=== PATIENT | female | born 1950 | race Caucasian/White ===

== ENCOUNTER 2024-10-25 20:53 | Observation (INO) | payer MEDICARE, OTHER, SELFPAY ==
[2024-10-25 16:40] VITALS: BP 151/88
[2024-10-25 17:00] VITALS: BP 119/68
[2024-10-25 17:04] VITALS: BP 119/68
[2024-10-25 17:10] VITALS: BMI 34.3
[2024-10-25] MEDS: TYLENOL 650 MG PO (17:10)
--- NOTE | 2024-10-25 17:15 | ED.GENMED ---
History of Present Illness
<Kanika Gilliland PA-C - Last Filed: 10/26/24 00:30>
General
Chief Complaint: Fall
Source: patient
Exam Limitations: none
Time Seen by Provider: 10/25/24 16:53
Nursing documentation reviewed up to this point in time: agreed with
History of Present Illness
History of Present Illness:
Patient is a 74-year-old female with history of hypertension presenting to the emergency department with left leg injury. Patient states she was walking across the pool deck earlier when she stepped into a the filter hole that was uncovered at the
time. She states that her left leg became stuck in the filter hole as the rest of her fell forward. She did not hit her head or lose consciousness. Patient states she initially was able to stumble over the bench where she sat until her daughter
came home and helped her come to the ER. Patient is unable to bear any weight now on her left leg.
She reports pain through her left camejo. No pain in her left ankle, left knee, or left hip. No numbness/tingling in left lower extremity.
She denies any pain in upper extremities, back pain, neck pain, or headache.
Patient is not on any blood thinners.
Review of Systems
<Kanika Gilliland PA-C - Last Filed: 10/26/24 00:30>
Review of Systems
Allergies reviewed?: Yes
All Other Systems: ROS reviewed and negative except as documented in HPI and ROS
Phy Exam
<Kanika Gilliland PA-C - Last Filed: 10/26/24 00:30>
Physical Exam
Physical Exam:
GENERAL: No acute distress
HEENT: atraumatic, extraocular muscles intact, no signs of entrapment, dentition intact, no other obvious trauma
NECK: no midline tenderness, normal range of motion, no other obvious trauma
BACK: no midline tenderness, no other obvious trauma
CHEST: no tenderness, no flail segment, no subcutaneous emphysema, no other obvious trauma
LUNGS: clear to auscultation bilaterally
CARDIOVASCULAR: regular rate and rhythm
ABDOMEN: soft, non-tender, no masses, no other obvious trauma
PELVIS: stable, no obvious injury
EXTREMITIES: Swelling, ecchymosis, and tenderness to left camejo. No bony tenderness to left knee, left hip, or left ankle. Very limited range of motion in left lower extremity due to pain. Sensation intact in LLE. Palpable left DP and PT pulse.
Cap refill within normal limits. Compartments soft. RLE, and bilateral upper extremities atraumatic and nontender with full range of motion
NEUROLOGIC: awake, alert x 3, no focal deficits
Course
<Kanika Gilliland PA-C - Last Filed: 10/26/24 00:30>
Orders/Labs/Results
Orders:
Orders
10/25/24 Dinner
Cholesterol Lowering
At Your Request: Full Participation
Cholesterol Lowering: Sodium, 2 Gram
10/25/24 17:05
Acetaminophen [Tylenol] 650 mg PO NOW STA
Leg Tibia/Fibula, Left 2 View [CR Leg Tibia/fibula Left 2 Vw] Urgent
Comment:
Reason For Exam: fall
10/25/24 19:48
Basic Metabolic Panel Urgent
Complete Blood Count/With Diff Urgent
10/25/24 20:16
Oxycodone [Roxicodone] 5 mg PO NOW STA
Oxycodone [Roxicodone] 5 mg PO Q4HPRN PRN
10/25/24 20:21
Splint [Braces/Immobilizers] As Directed
Type of Brace/Immobilizer: Knee immobilizer
Location for Brace/Immobilizer: left
10/25/24 20:29
Admit/Transfer Patient As Directed
Co-Sign Provider:
Level of Care: Observation services
Assign to:: Medical/Surgical
Physician / Group: shabana cervantes
Diagnosis: mechan fall left lower leg deep muscle contusion w/amb dys
Code Status As Directed
Resuscitation Status: Full Code
10/25/24 20:32
PRN Pain Medication Management As Directed
May give lesser potent ordered pain med per pt: Yes
preference::
Protocol:: Medication orders for pain may be administered in a
manner that supports deferring to patient preference
when the pt is:
- Requesting an ordered lesser potent pain medication.
Least to most potent pain medications are defined
as: acetaminophen < NSAID < tramadol < opioids
(morphine, oxycodone, hydromorphone).
- Requesting a lesser dose of the same medication IF
ORDERED.
- Requesting a less intrusive route of administration
if both routes are prescribed by the provider (PO <
IV).
10/25/24 20:50
MR Left Le No Joint Without Routine
Comment:
Reason For Exam: r/o gastro tear
OK for patient to be off Cardiac Monitoring for MRI: Yes
Recent pill cam endoscopy?: No
Pacemaker/Defibrillator?: No
10/25/24 21:41
Acetaminophen [Tylenol] 650 mg PO Q4HPRN PRN
Bisacodyl [Dulcolax] 10 mg RECTAL [id number] PRN
Docusate W/Senna [Senokot-S] 1 tablet PO BIDPRN PRN
Ondansetron Injectable [Zofran] 4 mg IV Q6HPRN PRN
Polyethylene Glycol Powder [Miralax] 17 grams PO DAILYPRN PRN
10/25/24 21:41
Activity As Directed
Activity Level: With Assistance
Pneumatic Compression Sleeves As Directed
Type: Knee high
Comment: apply to right leg only
Vital Signs As Directed
Frequency: Per unit guidelines
Ot Eval And Treat Routine
Pt Eval And Treat Routine
Activity Level: As Tolerated
DX Deep Vein Thrombosis Video Routine
10/26/24 08:00
Aspirin Low Dose EC [Aspir Low (Enteric Coated)] 81 mg PO DAILY
Atorvastatin [Lipitor] 20 mg PO DAILY
Cetirizine HCl [Zyrtec] 10 mg PO DAILY
Cholecalciferol (Vitamin D3) [VITAMIN D3 (cholecalciferol)] 25 mcg PO DAILY
Felodipine Extended Release [Plendil Extended Release] 5 mg PO DAILY
Irbesartan [Avapro] 300 mg PO DAILY
azelastine-fluticasone 2 spray NASAL DAILY
Abnormal Lab Results
10/25/24
19:48
WBC 15.3 H 10^3/uL
(4.8-10.8)
Abs Immat Gran (auto) 0.1 H 10^3/uL
(0-0.05)
Absolute Neuts (auto) 12.8 H 10^3/uL
(1.4-6.5)
Absolute Monos (auto) 0.8 H 10^3/uL
(0.1-0.6)
Neutrophils % 83.7 H %
(42.2-75.2)
Lymphocytes % 7.7 L %
(20.5-51.1)
Chloride 110 H mmol/L
(98-107)
Carbon Dioxide 21 L mmol/L
(22-30)
BUN 28 H mg/dl
(7-17)
Glucose 129 H mg/dl
(70-99)
10/25/24 19:48
10/25/24 19:48
Vital Signs
Initial and Last Documented VS:
Initial Vital Signs
Temp Pulse Resp BP Pulse Ox
98.1 F 82 22 151/88 98
10/25/24 16:40 10/25/24 16:40 10/25/24 16:40 10/25/24 16:40 10/25/24 16:40
Last Documented Vital Signs
Temp Pulse Resp BP Pulse Ox
98.5 F 74 18 137/83 98
10/25/24 21:52 10/25/24 21:52 10/25/24 21:52 10/25/24 21:52 10/25/24 21:52
<Daryl Alexander, DO - Last Filed: 10/25/24 20:03>
Orders/Labs/Results
Orders:
Orders
10/25/24 Dinner
Cholesterol Lowering
At Your Request: Full Participation
Cholesterol Lowering: Sodium, 2 Gram
10/25/24 17:05
Acetaminophen [Tylenol] 650 mg PO NOW STA
Leg Tibia/Fibula, Left 2 View [CR Leg Tibia/fibula Left 2 Vw] Urgent
Comment:
Reason For Exam: fall
10/25/24 19:48
Basic Metabolic Panel Urgent
Complete Blood Count/With Diff Urgent
10/25/24 20:16
Oxycodone [Roxicodone] 5 mg PO NOW STA
Oxycodone [Roxicodone] 5 mg PO Q4HPRN PRN
10/25/24 20:21
Splint [Braces/Immobilizers] As Directed
Type of Brace/Immobilizer: Knee immobilizer
Location for Brace/Immobilizer: left
10/25/24 20:29
Admit/Transfer Patient As Directed
Co-Sign Provider:
Level of Care: Observation services
Assign to:: Medical/Surgical
Physician / Group: shabana cervantes
Diagnosis: mechan fall left lower leg deep muscle contusion w/amb dys
Code Status As Directed
Resuscitation Status: Full Code
10/25/24 20:32
PRN Pain Medication Management As Directed
May give lesser potent ordered pain med per pt: Yes
preference::
Protocol:: Medication orders for pain may be administered in a
manner that supports deferring to patient preference
when the pt is:
- Requesting an ordered lesser potent pain medication.
Least to most potent pain medications are defined
as: acetaminophen < NSAID < tramadol < opioids
(morphine, oxycodone, hydromorphone).
- Requesting a lesser dose of the same medication IF
ORDERED.
- Requesting a less intrusive route of administration
if both routes are prescribed by the provider (PO <
IV).
10/25/24 20:50
MR Left Le No Joint Without Routine
Comment:
Reason For Exam: r/o gastro tear
OK for patient to be off Cardiac Monitoring for MRI: Yes
Recent pill cam endoscopy?: No
Pacemaker/Defibrillator?: No
10/25/24 21:41
Acetaminophen [Tylenol] 650 mg PO Q4HPRN PRN
Bisacodyl [Dulcolax] 10 mg RECTAL [id number] PRN
Docusate W/Senna [Senokot-S] 1 tablet PO BIDPRN PRN
Ondansetron Injectable [Zofran] 4 mg IV Q6HPRN PRN
Polyethylene Glycol Powder [Miralax] 17 grams PO DAILYPRN PRN
10/25/24 21:41
Activity As Directed
Activity Level: With Assistance
Pneumatic Compression Sleeves As Directed
Type: Knee high
Comment: apply to right leg only
Vital Signs As Directed
Frequency: Per unit guidelines
Ot Eval And Treat Routine
Pt Eval And Treat Routine
Activity Level: As Tolerated
DX Deep Vein Thrombosis Video Routine
10/26/24 08:00
Aspirin Low Dose EC [Aspir Low (Enteric Coated)] 81 mg PO DAILY
Atorvastatin [Lipitor] 20 mg PO DAILY
Cetirizine HCl [Zyrtec] 10 mg PO DAILY
Cholecalciferol (Vitamin D3) [VITAMIN D3 (cholecalciferol)] 25 mcg PO DAILY
Felodipine Extended Release [Plendil Extended Release] 5 mg PO DAILY
Irbesartan [Avapro] 300 mg PO DAILY
azelastine-fluticasone 2 spray NASAL DAILY
Abnormal Lab Results
10/25/24
19:48
WBC 15.3 H 10^3/uL
(4.8-10.8)
Abs Immat Gran (auto) 0.1 H 10^3/uL
(0-0.05)
Absolute Neuts (auto) 12.8 H 10^3/uL
(1.4-6.5)
Absolute Monos (auto) 0.8 H 10^3/uL
(0.1-0.6)
Neutrophils % 83.7 H %
(42.2-75.2)
Lymphocytes % 7.7 L %
(20.5-51.1)
Chloride 110 H mmol/L
(98-107)
Carbon Dioxide 21 L mmol/L
(22-30)
BUN 28 H mg/dl
(7-17)
Glucose 129 H mg/dl
(70-99)
10/25/24 19:48
10/25/24 19:48
Vital Signs
Initial and Last Documented VS:
Initial Vital Signs
Temp Pulse Resp BP Pulse Ox
98.1 F 82 22 151/88 98
10/25/24 16:40 10/25/24 16:40 10/25/24 16:40 10/25/24 16:40 10/25/24 16:40
Last Documented Vital Signs
Temp Pulse Resp BP Pulse Ox
98.5 F 74 18 137/83 98
10/25/24 21:52 10/25/24 21:52 10/25/24 21:52 10/25/24 21:52 10/25/24 21:52
<Kanika Gilliland PA-C - Last Filed: 10/26/24 00:30>
MDM/Problems Addressed
Differential Diagnosis Includes:
Not limited to: Proximal tibial fracture, fibular fracture, tibial plateau fracture, patellar subluxation, contusion, hematoma, etc.
MDM/Problems Addressed:
74-year-old female presenting with contusion to left lower leg after mechanical fall and unable to ambulate. There was no head strike or other associated injuries. Vital stable. Physical exam as above. Patient in mild distress due to pain. No
evidence of head or neck trauma. There is swelling and pain with an obvious contusion to the left camejo. There is no obvious deformity of left lower extremity. No pain in left ankle, left knee, or left hip. LLE neurovascularly intact.
Compartments are soft. X-ray of left tibia/fibula reviewed by me which shows no evidence of acute fracture. However�patient remains in significant discomfort and is unable to ambulate. Will admit patient for further evaluation, possible Ortho
eval and case management. Patient accepted to hospital service in stable condition. Case was seen with attending physician.
Chronic conditions affecting care:
Hypertension
Acute Exacerbation and/or Progression of Chronic Illness:
N/A
<Kanika Gilliland PA-C - Last Filed: 10/26/24 00:30>
*Radiology
Radiology exam reviewed: preliminary read by ED provider (Tibia/fibula x-ray reviewed by me-no acute fracture)
*Pulse Oximetry
Patient hypoxic: no
*EKG
Interpreted by ED Provider?: NA
*Forensic Psychiatrist Interpretation
Rate: Forensic Psychiatrist- N/A
*Critical Care Note
Total Time (30-74mins, 75-104mins- exclusive of procedures): Not Applicable
<Kanika Gilliland PA-C - Last Filed: 10/26/24 00:30>
Patient Management
Discussion with other providers: Hospitalist
Escalation/DeEscalation of care consider admission/obs:
Admit for further evaluation and case management consult.
ED Attending Note
<Kanika Gilliland PA-C - Last Filed: 10/26/24 00:30>
-
Portions of this chart may have been created with voice recognition software.� Occasional wrong word or��sound alike� substitutions may have occurred due to the inherent limitations of voice recognition software.
<Daryl Alexander DO - Last Filed: 10/25/24 20:03>
ED Attending Note
Patient seen and examined by attending physician: Yes
ED Attending Note:
I have reviewed and agree with history and treatment plan by Kanika Munoz. My exam reveals 74-year-old female with left lower leg contusion, no other injuries. Patient unable to ambulate. At the hospital for further evaluation.
Discharge Plan
Departure
Patient Disposition: Admit
Date of Disposition: 10/25/24
Time of Disposition: 19:35
Presentation/result/management discussed w/ accepting MD/DO: Hospitalist
Discharge Problem:
Contusion of left lower leg
Interventions
Interventions:
*Risk Screen - Suicide Last Done: 10/25/24 21:52
*General Assessment Last Done: 10/25/24 17:12
*Neglect/Abuse Screening Last Done: 10/25/24 17:12
*ED- Fall Risk Assessment Last Done: 10/25/24 17:13
*ED COVID-19 Vaccine History Last Done: 10/25/24 21:52
*Nursing Disposition Last Done: 10/25/24 21:34
ED-Musculoskeletal Assessment Last Done: 10/25/24 19:21
ED-Skin Assessment Last Done: 10/25/24 19:21
Discharge Date and Time
Discharge Date/Time: 10/25/24 21:35
[2024-10-25 19:33] VITALS: BP 130/65
--- NOTE | 2024-10-25 19:48 | W.PN.UPDATE ---
Update Note
Progress Note Update
Patient seen in conjunction with [facility]. I agree with the findings on history and physical. I concur with assessment and plan unless stated otherwise.
Briefly, this is a 74-year-old with past medical history significant for hypertension who presents emergency department after suffering a leg injury at home. Patient states she was walking across the pool deck earlier when she stepped into a the
filter hole that was uncovered at the time. She states that her left leg became stuck in the filter hole as the rest of her fell forward. She did not hit her head or lose consciousness. She was initially able to ambulate but with poor gait and
stumbled. She did not fall. She was then able to sit down for some time and the daughter came to get her and brought her to the emergency department. In the emergency department she was found that she was unable to bear weight. She reports pain
throughout her left camejo. There was no hip pain. No pain in left ankle or knee. She denies any numbness or tingling. There is no swelling. She denies back pain.
In the emergency department she had stable vital signs with a blood pressure of 150/70 and pulse of 75 temperature was 98.1
Saturation was 97% on room air.
Exam shows no evidence of limb length asymmetry, pulses were intact. No joint swelling.
X-ray without any fractures in the TP. Lucency along the soleous
ON examination excuisite calf tenderness with dorsiflexion against resistance suggestive of gastroc/soleous muscle injury.
Labs are pending
Assessment and plan
74-year-old history of hypertension presenting with a mechanical fall, no loss of consciousness. No internal fractures or additional trauma seen on imaging. No hip pain. She is unable to bear weight due to pain.
Admit to MedSurg observation
Pain control with Tylenol. [id number], as needed low dose opioids
hold statin
mri for muscle tear (may need ortho and/or immobilization)
PT evaluation
Case management
DVT prophylaxis with SCDs pending labs
[2024-10-25 19:56] LABS: % Basophils 0.7 % (0-2); % Eosinophils 2.2 % (0-6); % Immature Granulocytes 0.5 % (0-0.5); % Lymphocytes 7.7 % (20.5-51.1); % Monocytes 5.2 % (1.7-9.3); % Neutrophils 83.7 % (42.2-75.2); Absolute Basophils 0.1 10^3/uL (0-0.2); Absolute Eosinophils 0.3 10^3/uL (0-0.7); Absolute Immature Granulocytes 0.1 10^3/uL (0-0.05); Absolute Lymphocytes 1.2 10^3/uL (1.2-3.4); Absolute Monocytes 0.8 10^3/uL (0.1-0.6); Absolute Neutrophils 12.8 10^3/uL (1.4-6.5); Hemoglobin 13.7 g/dL (12.0-16.0); Mean Corp Hgb Conc. 34.3 g/dL (33.0-37.0); Mean Corpuscular Hgb 29.5 pg (27.0-31.0); Mean Corpuscular Volume 86.2 fL (81.0-99.0); Mean Platelet Volume 9.5 fL (7.4-10.4); Nucleated Red Blood Cells % 0 %; Platelet Count 261 10^3/uL (130-400); Red Blood Cell Count 4.64 10^6/uL (4.20-5.40); Red Cell Dist. Width 13.9 % (11.5-14.5); White Blood Cell Count 15.3 10^3/uL (4.8-10.8)
[2024-10-25 20:10] LABS: Blood Urea Nitrogen 28 mg/dl (7-17); Calcium 9.3 mg/dl (8.4-10.2); Carbon Dioxide 21 mmol/L (22-30); Chloride 110 mmol/L (98-107); Estimated Creatinine Clearance 53 ml/min; Glucose 129 mg/dl (70-99); Potassium 4.2 mmol/L (3.5-5.1); Sodium 140 mmol/L (135-145); eGFR > 60.00
--- NOTE | 2024-10-25 20:16 | HPS.HSE ---
Family Physician
-
Family Physician: Sahara Burton MD
Chief Complaint
-
Left lower leg pain status post fall
History of Present Illness
74-year-old female who was watching her 5-year-old grandson and 6-year-old neighbor when she states they snuck out of the house she was running through the pool area to find them she saw them in the distance jumping in the trampoline as she was
running across the pool area she fell into the pool filter with her left leg just at the tibial tuberosity area leaning forward. She reports she was able to get her leg out of the pool filter and sit on the edge of the pool while the children ran
next-door to get help. She states her neighbor helped her up to a bench. This occurred earlier at 2 PM. She has been unable to stand on the leg due to severe pain. On exam she is tender on the left anterior medial calf some point tenderness at
the tibial tuberosity and some ecchymosis on the anterior lateral leg beginning to develop along with swelling. There are no abrasions to the leg foot or ankle. X-rays were negative for fracture. She denies head injury, neck pain, fever, chills,
chest pain, palpitations, cough, shortness of breath, abdominal pain, nausea, vomiting, diarrhea, urinary symptoms, bilateral arm pain. She has past medical history of mild intermittent asthma, hypertension, GERD, hyperlipidemia, osteoarthritis,
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
Medical History
Past Medical History
Past Medical History: Reports Other
Additional Past Medical History:
mild intermittent asthma
hypertension
GERD
hyperlipidemia
osteoarthritis
seasonal allergies
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
ascending aortic aneurysm she believes 4 cm that is being watched at [facility]
Class I obesity
Past Surgical History: Reports Other
Additional Past Surgical History:
Bilateral knee replacements
Left shoulder arthroscopy
Left breast lumpectomy 20 years ago secondary to ductal carcinoma in situ
Social History
Tobacco: Non-smoker
Alcohol: None
Drug: None
Personal: Single
Living: Alone
Employment: Retired
Family History
Family History: Other (Father history of asthma requiring intubations, history of prostate cancer age 75 history [place] age 83 mother history COPD, breast cancer, CVA age 74 )
Allergies / Home Medications
Allergies reflects when Allergies were last updated in [facility].
Home Medications with original date entered in [facility]
Allergy/Medication List:
Allergies
Allergy/AdvReac Type Severity Reaction Status Date / Time
Iodinated Contrast Media Allergy Hives Verified 10/25/24 16:46
Sulfa (Sulfonamide Allergy Hives Verified 10/25/24 16:46
Antibiotics)
Home Medications
aspirin 81 mg tablet,delayed release 81 mg PO DAILY 10/25/24
atorvastatin 20 mg tablet 20 mg PO DAILY 10/25/24
azelastine 137 mcg-fluticasone 50 mcg/spray nasal spray 2 spray intranasal DAILY 10/25/24
cetirizine 10 mg tablet 10 mg PO DAILY 10/25/24
cholecalciferol (vitamin D3) 25 mcg (1,000 unit) tablet (Vitamin D3) 25 mcg PO DAILY 10/25/24
felodipine 10 mg tablet,extended release 24 hr 5 mg PO DAILY 10/25/24
fluticasone 250 mcg-salmeterol 50 mcg/dose blistr powdr for inhalation 1 inh inhalation R BID 10/25/24
irbesartan 300 mg tablet 300 mg PO DAILY 10/25/24
omeprazole 40 mg capsule,delayed release 40 mg PO DAILY 10/25/24
Review of Systems
-
History Source: Patient
A 12 point ROS was completed and negative except as noted: Yes
Constitutional: Denies Fever or Chills
EENT: Denies Sore Throat or Runny Nose
Respiratory: Denies Cough or Trouble Breathing
Cardiac: Denies Chest Pain, Diaphoresis, Palpitations or Syncope
Abdomen/GI: Denies Abdominal Pain, Nausea, Vomiting, Diarrhea or Constipated
: Denies Dysuria, Frequency, Flank Pain or Incontinence
Musculoskeletal: Reports Muscle Pain ( tender on the left anterior medial calf some point tenderness at the tibial tuberosity and some ecchymosis on the anterior lateral leg beginning to develop along with swelling. There are no abrasions to the
leg foot or ankle); Denies Joint Pain or Joint Swelling
Skin: Denies Itching or Rash
Neurological: Denies Dizzy, Headache or Weakness
Endocrine: Reports No Symptoms
Hematologic/Lymphatic: Reports No Symptoms
Psych: Reports Calm
Physical Exam
Vital Signs
Vital Signs
Temp Pulse Resp BP Pulse Ox
98.1 F 75 22 130/65 97
10/25/24 16:40 10/25/24 19:33 10/25/24 16:40 10/25/24 19:33 10/25/24 19:33
Physical Exam
General: Conversant and Pain; No Fever or Chills
HEENT: NormoCephalic, Anicteric, Moist mucous membranes, PERRLA, [place] Conjunctivae, No Ptosis and Neck Nontender
Respiratory: Clear; No Wheezes, Rales or Rhonchi
Cardiac: S1/S2 and Regular Rhythm; No Murmur, Rub, Gallop or Peripheral Edema
GI: Soft, Non Tender, Non Distended, Normal Bowel Sounds and No Hepatosplenomegaly
Rectal: Deferred by Provider
Genito-urinary: Deferred by me
Musculoskeletal: No Clubbing, No Cyanosis and Other ( tender on the left anterior medial calf some point tenderness at the tibial tuberosity and some ecchymosis on the anterior lateral leg beginning to develop along with swelling. There are no
abrasions to the leg foot or ankle)
Skin: Warm and Dry; No Rash or Jaundice
Neuro: AO x 3, Cranial Nerves Intact and No Sensory Deficits; No Slurred Speech, Facial Droop, Tremors or Sedated
Psych: Calm
Laboratory Results
-
10/25/24 19:48
10/25/24 19:48
Impression/Plan
-
Impression/plan:
Observation MedSurg
#Mechanical fall with left leg deep contusion
-X-ray left tib-fib no acute fracture, knee prosthesis intact
-Tylenol as needed mild pain, oxycodone moderate pain
-Ice
-Knee immobilizer
-PT consult
-Will check MRI left lower extremity due to severe pain Gastrocnemius and solus muscle
#HTN�benign
BP 130/65
-Continue irbesartan 300 mg daily, felodipine 5 mg daily
#Mild intermittent asthma-no acute exacerbation
Continue fluticasone salmeterol 1 inhalation twice daily, albuterol as needed
#GERD
-Continue omeprazole 40 mg daily
#Hyperlipidemia
-Continue atorvastatin 20 mg daily
#Osteoarthritis
#History of bilateral knee replacements
-Continue vitamin D3
#Seasonal allergies
-Continue cetirizine 10 mg daily, azelastine/fluticasone nasal spray
#Class I obesity�BMI 34.3
Affects all aspects of care
Weight loss recommended
Other PMH:
Ductal carcinoma in situ left breast 20 years ago status postlumpectomy
Ascending aortic aneurysm she believes 4 cm that is being watched at [facility]
VTE prophylaxis
SCD right lower extremity
Full code
[2024-10-25] MEDS: ROXICODONE 5 MG PO ×2 (20:27→23:09)
[2024-10-25 21:52] VITALS: BP 137/83; BMI 34.2
--- NOTE | 2024-10-26 01:31 | PTCARENOTE ---
Pt arrived to unit from ed via stretcher. Pt pulled from stretcher to bed on . Pt aao x3 and able to make needs known. Immobilizer in pace on left leg. Oriented to unit, call valenzuela within reach. Will continue to monitor.
[2024-10-26 07:05] VITALS: BP 121/76
[2024-10-26] MEDS: AVAPRO 300 MG PO (07:58)
[2024-10-26] MEDS: PLENDIL EXTENDED RELEASE 5 MG PO (07:58)
[2024-10-26] MEDS: ASPIR LOW (ENTERIC COATED) 81 MG PO (07:58)
[2024-10-26] MEDS: ZYRTEC 10 MG PO (07:59)
[2024-10-26] MEDS: LIPITOR 20 MG PO (07:59)
[2024-10-26] MEDS: VITAMIN D3 (cholecalciferol) 25 MCG PO (07:59)
[2024-10-26] MEDS: TYLENOL 650 MG PO (08:07)
[2024-10-26] MEDS: ADVAIR HFA 115/21 MCG INHALER 2 PUFF INH ×2 (08:12→19:27)
--- NOTE | 2024-10-26 09:58 | W.PN.HOSP.TC ---
Today's Communication/Plan
-
Await MRI
Orthopedics
PT/OT
IV Toradol
Assessment / Plan
Assessment / Plan
Gen-AAOx3, NAD
HEENT-NC, AT, anicteric, clear oral mm
Neck-supple
CV-reg, no M, +S1/S2
Lungs-clear B/L
Abd-soft, NT, ND
Ext-no edema
Musculoskeletal-no cyanosis, clubbing
Skin-warm and dry
Neuro-grossly non-focal
Psych-calm, cooperative
Mechanical fall/left leg injury -no fracture on x-ray. Awaiting MRI. Pain is mostly pretibial in nature. Doubt knee trauma. Leg immobilizer in place. Consult orthopedics. Add IV Toradol as needed.
PT/OT.
Essential hypertension -stable.
Mild intermittent asthma
GERD
Hyperlipidemia -atorvastatin.
History of left breast cancer
Ascending aortic aneurysm
Obesity due to excess calories
Full code
Anticipated Discharge: 24 - 48 hours
Subjective/Interval History
-
Date of Service: October 26, 2024
Patient seen and examined. Complaining of left leg pain below the knee.
Objective Data
-
Vital Signs:
Vital Signs
Temp Pulse Resp BP Pulse Ox
98.9 F 80 16 121/76 96
10/26/24 07:05 10/26/24 08:21 10/26/24 08:21 10/26/24 07:58 10/26/24 08:21
Review of Systems
-
History Source: Patient
All other systems: Reviewed and negative
[2024-10-26] MEDS: TORADOL 15 MG IV (10:46)
--- NOTE | 2024-10-26 13:18 | CON.ORTHO ---
Consultation
-
Date/Time Consultation Requested: 10/26/2024
Date/Time Consultation Performed: 10/26/2024
Requesting Provider: Dr. Rosenberg
Performing Provider: Andree De La Rosa PA-C, for Dr. Juarez
Reason for Consultation: Left leg injury
Consultation - Orthopedics
History
HPI: This is a 74-year-old female who presented to [facility] after sustaining a fall onto her left knee. She reports she was pain attention to her grandson and the pain neighbor child who were on a distant trampoline. She did not realize
that the pool filter cover was off and she stepped into a filter. This caused her to come down and landed directly on her left knee. She was unable to bear weight after the injury and was brought to the emergency department by her family. Of
note, she does have a history of bilateral knee replacements that were performed by Dr. Trejo at [facility]. She is hiking and kayaking. She reports most of her pain is actually located in the posterior aspect of the leg and is worsened with any
motion [id number] or with motion of her ankle. Her pain persist despite the knee immobilizer. She did undergo an MRI as x-rays were negative. Our orthopedic specialty was consulted into discuss treatment recommendations going forward.
Past medical history: Asthma, hypertension, GERD, hyperlipidemia, DJD, ductal carcinoma in situ left breast.
Past surgical history: Left shoulder arthroscopy, bilateral TKA, left breast lumpectomy.
Social history: Denies tobacco or alcohol use. Lives alone. Active at baseline.
Review of systems: All systems reviewed and negative except for those mentioned in HPI.
Allergies / Home Medications
Allergy/AdvReac Type Severity Reaction Status Date / Time
Iodinated Contrast Media Allergy Hives Verified 10/25/24 16:46
Sulfa (Sulfonamide Allergy Hives Verified 10/25/24 16:46
Antibiotics)
�Medication �Instructions �Recorded
aspirin 81 mg tablet,delayed 81 mg PO DAILY Blood Clot 10/25/24
release Prevention/Tx
atorvastatin 20 mg tablet 20 mg PO DAILY cholesterol 10/25/24
azelastine 137 mcg-fluticasone 50 2 spray intranasal DAILY Allergies 10/25/24
mcg/spray nasal spray
cetirizine 10 mg tablet 10 mg PO DAILY Allergies 10/25/24
cholecalciferol (vitamin D3) 25 25 mcg PO DAILY Supplement 10/25/24
mcg (1,000 unit) tablet (Vitamin
D3)
felodipine 10 mg tablet,extended 5 mg PO DAILY Blood Pressure 10/25/24
release 24 hr
fluticasone 250 mcg-salmeterol 50 1 inh inhalation R BID 10/25/24
mcg/dose blistr powdr for Lung/Breathing Issues
inhalation
irbesartan 300 mg tablet 300 mg PO DAILY Blood Pressure 10/25/24
omeprazole 40 mg capsule,delayed 40 mg PO DAILY Gastrointestinal 10/25/24
release Issue
Vital Signs / Lab Results
Temp Pulse Resp BP Pulse Ox
98.9 F 80 16 121/76 96
10/26/24 07:05 10/26/24 08:21 10/26/24 08:21 10/26/24 07:58 10/26/24 08:21
10/25/24 19:48
10/25/24 19:48
Physical examination:
General: Well-developed, well-nourished female in no acute distress at rest. AAOx4.
HEENT: Atraumatic, normocephalic, neck supple.
Heart: Regular rate and rhythm.
Lungs: Nonlabored breathing on room air.
Left knee/lower leg: Diffuse swelling of both anterior and posterior leg. Calf is diffusely tender, although compartments are soft. Range of motion of knee 0 to 90 degrees with hesitation secondary to posterior leg discomfort. Incision over
anterior knee is well-healed. No effusion of the knee. Tenderness palpation over the fibular head. Able to dorsiflex and plantarflex ankle with reproduction of pain in the calf.
Radiographic studies:
X-rays of the left tib-fib show evidence of a left total knee arthroplasty. No obvious fracture.
MRI of the left lower extremity shows evidence of:
1. Plantaris tendon tear.
2. Intramuscular edema/strain involving the proximal soleus muscle as well as the proximal anterior tibial and peroneal longus muscles.
3. Nondisplaced fracture of the fibular head
Assessment / Plan
Assessment: Left leg pain after fall-plantaris tendon tear, Muscle strain, nondisplaced fracture of the fibular head
Plan: Tashia's MRI demonstrated evidence of a plantaris tendon tear, calf muscle strain, and a nondisplaced fracture of the fibular head. Fortunately, there is no evidence of periprosthetic fracture or knee joint involvement. She reports
persistent discomfort despite the knee immobilizer, so based on her exam, I do believe she would benefit from a cam walker boot to see if immobilization of her ankle to prevent plantar and dorsiflexion would take the stress off of her calf muscle
and allow her strains and tendon tearing to become less symptomatic. A consult for Natalie was placed. She may weight-bear as tolerated with a walker and either the knee immobilizer or cam walker boot in place. Ice, elevation, and Tylenol/NSAIDs for
pain control. I advised her it will be several months before she is back to higher impact activities such as hiking and kayaking and she will require further PT going forward. A consult for physical therapy was placed today and she may perform
activities to tolerance in the knee immobilizer or boot once placed. Since there is no acute surgical intervention at this time, we will sign off on her for now and plan to see her in the outpatient setting in 2 weeks for repeat x-rays and clinical
reevaluation.
[2024-10-26 15:01] VITALS: BP 105/74
--- NOTE | 2024-10-26 16:03 | CM ---
Alert awake oriented patient who lives alone in a 2 story home with 13 steps to enter and 13 to bed bathroom. She is independent in driving and in all activities of daily living.Her support person is her dgt Rachel . Will need PT OT eval for dc
planning. [facility] letter copy given explained . [place] letter on chart pt declined to sign.
No adaptive devices
Never had VN/SNF
Pharmacy [facility]
PCP Dr Josafat Bustillos
PLAN Home no needs
[2024-10-26 19:44] LABS: Hepatitis C Antibody Negative (Negative)
[2024-10-26] MEDS: ROXICODONE 5 MG PO (22:08)
[2024-10-26 23:29] VITALS: BP 136/86
[2024-10-27 06:07] LABS: % Basophils 0.7 % (0-2); % Eosinophils 5.5 % (0-6); % Immature Granulocytes 0.4 % (0-0.5); % Lymphocytes 16.2 % (20.5-51.1); % Monocytes 6.4 % (1.7-9.3); % Neutrophils 70.8 % (42.2-75.2); Absolute Basophils 0.1 10^3/uL (0-0.2); Absolute Eosinophils 0.6 10^3/uL (0-0.7); Absolute Lymphocytes 1.7 10^3/uL (1.2-3.4); Absolute Monocytes 0.7 10^3/uL (0.1-0.6); Absolute Neutrophils 7.6 10^3/uL (1.4-6.5); Hematocrit 36.4 % (37.0-47.0); Hemoglobin 12.1 g/dL (12.0-16.0); Mean Corp Hgb Conc. 33.2 g/dL (33.0-37.0); Mean Corpuscular Hgb 29.3 pg (27.0-31.0); Mean Corpuscular Volume 88.1 fL (81.0-99.0); Mean Platelet Volume 9.9 fL (7.4-10.4); Nucleated Red Blood Cells % 0 %; Platelet Count 204 10^3/uL (130-400); Red Blood Cell Count 4.13 10^6/uL (4.20-5.40); Red Cell Dist. Width 13.6 % (11.5-14.5); White Blood Cell Count 10.7 10^3/uL (4.8-10.8)
[2024-10-27 07:05] VITALS: BP 133/75
[2024-10-27] MEDS: ADVAIR HFA 115/21 MCG INHALER 2 PUFF INH ×2 (07:30→20:37)
[2024-10-27] MEDS: ZYRTEC 10 MG PO (08:43)
[2024-10-27] MEDS: VITAMIN D3 (cholecalciferol) 25 MCG PO (08:43)
[2024-10-27] MEDS: AVAPRO 300 MG PO (08:43)
[2024-10-27] MEDS: LIPITOR 20 MG PO (08:43)
[2024-10-27] MEDS: ASPIR LOW (ENTERIC COATED) 81 MG PO (08:43)
[2024-10-27] MEDS: PLENDIL EXTENDED RELEASE 5 MG PO (08:44)
[2024-10-27] MEDS: TORADOL 15 MG IV (08:47)
--- NOTE | 2024-10-27 09:26 | W.PN.HOSP.TC ---
Today's Communication/Plan
-
Await CAM boot
PT/OT
Bowel regimen
Assessment / Plan
Assessment / Plan
Gen-AAOx3, NAD
HEENT-NC, AT, anicteric, clear oral mm
Neck-supple
CV-reg, no M, +S1/S2
Lungs-clear B/L
Abd-soft, NT, ND
Ext-no edema
Musculoskeletal-no cyanosis, clubbing
Skin-warm and dry
Neuro-grossly non-focal
Psych-calm, cooperative
Acute traumatic left fibular head fracture -due to fall. Suspect underlying osteoporosis as well. Discussed with patient. Recommend outpatient follow-up with PCP and orthopedics. Awaiting CAM boot and PT consult today.
Acute traumatic left plantaris tendon tear, soleus muscle strain, anterior tibial and peroneus longus muscle strain -due to trauma from fall. Awaiting PT, cam boot. Continue analgesics. Bowel regimen.
Essential hypertension -stable.
Mild intermittent asthma
GERD
Hyperlipidemia -atorvastatin.
History of left breast cancer
Ascending aortic aneurysm
Obesity due to excess calories
Full code
Dispo -pending PT input.
Anticipated Discharge: Within 24 hours
Subjective/Interval History
-
Date of Service: October 27, 2024
Patient seen and examined. Pain under reasonable control. No complaints.
Objective Data
-
Labs:
Laboratory Results
10/27/24
05:08
WBC 10.7
Hgb 12.1
Hct 36.4 L
Plt Count 204 D
Vital Signs:
Vital Signs
Temp Pulse Resp BP Pulse Ox
98.5 F 82 18 133/75 96
10/27/24 07:05 10/27/24 08:43 10/27/24 07:34 10/27/24 08:43 10/27/24 07:34
I&O
10/26/24 10/27/24 10/28/24
06:59 06:59 06:59
Intake Total 1679
Balance 1679
Review of Systems
-
History Source: Patient
All other systems: Reviewed and negative
[2024-10-27] MEDS: MIRALAX 17 GRAMS PO (10:24)
[2024-10-27] MEDS: SENOKOT-S 1 TABLET PO ×2 (10:24→20:27)
--- NOTE | 2024-10-27 12:58 | PTCARENOTE ---
patient working with PT currently. reports no BM since admission. tolerating diet, vss, CAM boot in place to LLE, will continue to monitor.
[2024-10-27 13:15] VITALS: BP 118/65; BP 91/58; PULSE 93; O2SAT 94
[2024-10-27 13:22] VITALS: BP 118/65; BP 91/58; PULSE 91; O2SAT 94
[2024-10-27] MEDS: ROXICODONE 5 MG PO ×3 (13:28→23:18)
[2024-10-27 15:05] VITALS: BP 100/67
--- NOTE | 2024-10-27 16:28 | PTCARENOTE ---
at 1612, notified Dr. Rosenberg because patient was medicated at 1328 with Roxicodone and now when she moves leg she is jumping in pain. ? muscle spasms. Dr. Rosenberg to order now dose of Roxicodone 5mgs Po and patent to start on Motrin at 1800. will
continue to monitor.
--- NOTE | 2024-10-27 16:40 | CM ---
PT OT indicated pt would benefit with Acute rehab.
Spoke with [facility]al[facility] Benjamin rep she checked chart Pt does not qualify.
Dr Cooper checked chart . Below knee injuries do not qualify for acute rehab.
Hospitalist had [facility] checked chart .Pt is an observation patient .
SNF not covered under observation.
Spoke with Dilma Poole rep Pt dis not part of Medicare waiver program.
Explained above to patient . She feels she needs rehab but can not afford to cover cost .
She said she will stay at [facility] home but ne bed for her at this time .
[facility] [address] [address]
Pt is upset about Observation. She requested [facility] because she can not do out pt PT.Referral in care port.
Pt with pain. Cam boot to left LL.
PLAN Home with [facility]
[2024-10-27] MEDS: MOTRIN 800 MG PO ×2 (17:15→23:18)
--- NOTE | 2024-10-27 19:24 | PTCARENOTE ---
pain 3/10 at rest sitting in chair after Roxicodone and Motrin, will continue to monitor.
[2024-10-27 23:35] VITALS: BP 96/61
[2024-10-28] MEDS: MOTRIN 800 MG PO ×2 (05:42→11:28)
[2024-10-28 08:00] VITALS: BP 108/80
[2024-10-28] MEDS: ADVAIR HFA 115/21 MCG INHALER 2 PUFF INH (08:27)
[2024-10-28] MEDS: VITAMIN D3 (cholecalciferol) 25 MCG PO (10:46)
[2024-10-28] MEDS: LIPITOR 20 MG PO (10:46)
[2024-10-28] MEDS: ASPIR LOW (ENTERIC COATED) 81 MG PO (10:46)
[2024-10-28] MEDS: PLENDIL EXTENDED RELEASE 5 MG PO (10:47)
[2024-10-28] MEDS: MIRALAX 17 GRAMS PO (10:47)
[2024-10-28] MEDS: AVAPRO 300 MG PO (10:47)
[2024-10-28] MEDS: SENOKOT-S 1 TABLET PO (10:47)
[2024-10-28] MEDS: ZYRTEC 10 MG PO (10:47)
--- NOTE | 2024-10-28 10:49 | W.PN.HOSP.TC ---
Today's Communication/Plan
-
Discharge
Assessment / Plan
Assessment / Plan
Gen-AAOx3, NAD
HEENT-NC, AT, anicteric, clear oral mm
Neck-supple
CV-reg, no M, +S1/S2
Lungs-clear B/L
Abd-soft, NT, ND
Ext-no edema
Musculoskeletal-no cyanosis, clubbing
Skin-warm and dry
Neuro-grossly non-focal
Psych-calm, cooperative
Acute traumatic left fibular head fracture -due to fall. Suspect underlying osteoporosis as well. Discussed with patient. Recommend outpatient follow-up with PCP and orthopedics. Continue cam boot, PT.
Acute traumatic left plantaris tendon tear, soleus muscle strain, anterior tibial and peroneus longus muscle strain -due to trauma from fall. Continue analgesics. Bowel regimen.
Essential hypertension -stable.
Mild intermittent asthma
GERD
Hyperlipidemia -atorvastatin.
History of left breast cancer
Ascending aortic aneurysm
Obesity due to excess calories
Full code
Dispo -unfortunately does not qualify for acute rehab or skilled rehab.
Medically stable for discharge home today with PT, [facility]. Discussed with patient, nurse, case management.
Outpatient follow-up with PCP and orthopedics.
32 minutes spent in discharge process.
Anticipated Discharge: Today
Subjective/Interval History
-
Date of Service: October 28, 2024
Patient seen and examined. Pain is under control.
Objective Data
-
Vital Signs:
Vital Signs
Temp Pulse Resp BP Pulse Ox
97.9 F 73 16 108/80 96
10/28/24 08:00 10/28/24 08:34 10/28/24 08:34 10/28/24 08:00 10/28/24 08:34
I&O
10/27/24 10/28/24 10/29/24
06:59 06:59 06:59
Intake Total 1679 / 0 1560 / 1560
Balance 1679 156 / 156
Review of Systems
-
History Source: Patient
All other systems: Reviewed and negative
--- NOTE | 2024-10-28 10:51 | W.DS.TRANS ---
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
-
Discharge Instructions:
Discharge Diagnosis/Procedures Left fibular fracture, plantaris tendon tear,
muscle strain, ambulatory dysfunction
Diet Low Cholesterol,Low Fat
Activity With assistance,As tolerated
Additional Activity Please use the cam boot on the left leg with
ambulation using a walker
Driving Restrictions No driving
Bathing Restrictions None
Other Services PT
Instructions:
Stand-Alone Forms:
Changes to Home Medications: No
Discharge Medications:
DC Medications w/original date entered in [facility]
aspirin 81 mg tablet,delayed release 81 mg PO DAILY Blood Clot Prevention/Tx 10/25/24
atorvastatin 20 mg tablet 20 mg PO DAILY cholesterol 10/25/24
azelastine 137 mcg-fluticasone 50 mcg/spray nasal spray 2 spray intranasal DAILY Allergies 10/25/24
cetirizine 10 mg tablet 10 mg PO DAILY Allergies 10/25/24
cholecalciferol (vitamin D3) 25 mcg (1,000 unit) tablet (Vitamin D3) 25 mcg PO DAILY Supplement 10/25/24
felodipine 10 mg tablet,extended release 24 hr 5 mg PO DAILY Blood Pressure 10/25/24
fluticasone 250 mcg-salmeterol 50 mcg/dose blistr powdr for inhalation 1 inh inhalation R BID Lung/Breathing Issues 10/25/24
irbesartan 300 mg tablet 300 mg PO DAILY Blood Pressure 10/25/24
omeprazole 40 mg capsule,delayed release 40 mg PO DAILY Gastrointestinal Issue 10/25/24
ibuprofen 800 mg tablet 800 mg PO Q6 #20 tabs 10/27/24
oxycodone 5 mg tablet 5 mg PO Q4HPRN PRN mod pain #15 tabs 10/27/24
sennosides 8.6 mg-docusate sodium 50 mg tablet 1 tab PO BID #0 tabs 10/27/24
Home Medication Changes
Pending Results: No
[2024-10-28 14:26] VITALS: BP 93/67
[2024-10-28 14:30] VITALS: BP 118/74
== END 2024-10-28 15:16 | disposition home health service (06) ==
LOC: 3 WEST ACU 20:53
PROVIDERS: Physician Assistant; ADMITTING PHYSICIAN Internal Medicine; ATTENDING PHYSICIAN Hospitalist; CONSULT PHYSICIAN Specialist; EMERGENCY PHYSICIAN Emergency Medicine; FAMILY PHYSICIAN Family Medicine
DX: S82.492A Other fracture of shaft of left fibula, initial encounter for closed fracture (principal); S80.12XA Contusion of left lower leg, initial encounter; M25.579 Pain in unspecified ankle and joints of unspecified foot; I10 Essential (primary) hypertension; Z79.899 Other long term (current) drug therapy; J45.20 Mild intermittent asthma, uncomplicated; K21.9 Gastro-esophageal reflux disease without esophagitis; E78.5 Hyperlipidemia, unspecified; M19.90 Unspecified osteoarthritis, unspecified site; Z96.653 Presence of artificial knee joint, bilateral; E66.811 Obesity, class 1; Z68.34 Body mass index [BMI] 34.0-34.9, adult; I71.21 Aneurysm of the ascending aorta, without rupture; Y93.01 Activity, walking, marching and hiking; E66.09 Other obesity due to excess calories; Z85.3 Personal history of malignant neoplasm of breast; W19.XXXA Unspecified fall, initial encounter; Z79.82 Long term (current) use of aspirin
CPT/HCPCS: 73590; 73718; 80048; 85025; 86803; 94640; 97116; 97163; 97167; 99284; G0378

== ENCOUNTER → 2024-11-14 10:17 | Outpatient (REF) | payer MEDICARE, OTHER, SELFPAY | LOC: HWRAD 10:17 | PROVIDERS: ATTENDING PHYSICIAN Physician Assistant Medical; FAMILY PHYSICIAN Family Medicine | DX: S82.142A Displaced bicondylar fracture of left tibia, initial encounter for closed fracture (principal); S86.812A Strain of other muscle(s) and tendon(s) at lower leg level, left leg, initial encounter; Z96.652 Presence of left artificial knee joint; S82.832A Other fracture of upper and lower end of left fibula, initial encounter for closed fracture | CPT/HCPCS: 73700 ==